=== PATIENT | male | born 1995 | race African-American/Black ===

== ENCOUNTER 2021-07-15 17:37 | Emergency (ER) | payer OTHER, MEDICAID, SELFPAY ==
[2021-07-15 17:44] VITALS: BP 127/87; PULSE 85; RESP 18; TEMP 36.5; O2SAT 97
[2021-07-15 18:27] LABS: COVID19 -Nasal RAPID Negative (Negative)
== END 2021-07-15 20:37 | disposition left against medical advice (07) ==
PROVIDERS: Emergency Medicine; Emergency Provider Emergency Medicine
DX: R05.9 Cough, unspecified (principal); J02.9 Acute pharyngitis, unspecified; R50.9 Fever, unspecified; Z20.822 Contact with and (suspected) exposure to COVID-19
CPT/HCPCS: 87635; 87880; 99282; C9803

== ENCOUNTER 2021-08-03 09:11 | Emergency (ER) | payer OTHER, MEDICAID, SELFPAY ==
[2021-08-03 09:24] VITALS: BP 166/103; PULSE 98; RESP 18; TEMP 37.1; O2SAT 99; BMI 32.8
--- NOTE | 2021-08-03 09:49 | ED.PSYCH ---
HPI - Psych General Chief Complaint: Psychiatric Symptoms Stated Complaint: Mental health crisis Time Seen by Provider: 08/03/21 09:12 Source: patient and family Mode of arrival: Family Vehicle History of Present Illness HPI Narrative: 25-year-old male nonsmoke with a history of depression presents with his girlfriend for evaluation of suicidal thoughts. Denies any obvious triggers or significantly stressful events that may be contributing. He felt a bit anxious on Thursday night and went to the gym this typically will help him, he went to bed feeling great and woke up and noted that he was holding a knife firmly to his left wrist. He had been having some thoughts of wanting to hurt himself but is currently not having any suicidal ideation or homicidal ideation. He is able to care for himself at home. He has a 2-month-old baby at home and though sleep has been slightly hard to come by he is otherwise well. He does not have any access to therapist or psychiatrist as an outpatient. He has never taken any medications for his depression. He denies alcohol or street drugs Related Data Previous Rx's Medication Instructions Recorded alprazolam 0.25 mg tablet (Xanax) 0.25 mg PO TID PRN #10 tab 08/03/21 Allergies Allergy/AdvReac Type Severity Reaction Status Date / Time No Known Drug Allergies Allergy Verified 08/03/21 09:23 Review of Systems Review of Systems Narrative: GENERAL: Denies chills, fatigue, malaise, fever, sweats. HEENT: Denies sinus pain, ear pain, sore throat, difficulty swallowing, dizziness. RESPIRATORY: Denies dyspnea, cough, wheezing, hemoptysis, sputum. CARDIOVASCULAR: Denies chest pain, palpitations, orthopnea, edema, GASTROINTESTINAL: Denies nausea, vomiting, abdominal pain, diarrhea, constipation, melena. : Denies dysuria, frequency, incontinence, hematuria, urinary retention. MUSCULOSKELETAL: denies weakness, joint pain, or bony pain SKIN: Denies rash, skin lesions, or other NEUROLOGIC: Denies weakness, headache, numbness, change in speech, confusion, seizures, incoordination. PSYCHIATRIC: See HPI 12 point review of systems is negative except for those stated above Patient History Social History Smoking Status: Current every day smoker Smoking Status: Current every day smoker alcohol intake frequency: holidays/special occasions only Substance Use Type: marijuana Exam Narrative Exam Narrative: GENERAL: [25 year old patient appears stated age. Well-developed patient, in mild distress. HEAD: Atraumatic. Normocephalic. EYES: Pupils equal round and reactive. Extraocular motions intact. No scleral icterus. No injection or drainage. ENT: Nose without bleeding, purulent drainage. Throat without erythema, tonsillar hypertrophy or exudate. Airway patent. NECK: Trachea midline. Non tender CARDIOVASCULAR: Regular rate and rhythm without murmurs, gallops, or rubs. RESPIRATORY: Clear to auscultation. Breath sounds equal bilaterally. No wheezes, rales, or rhonchi. GASTROINTESTINAL: Abdomen soft, non-tender, nondistended. EXTREMITIES: No edema or joint tenderness. BACK: Nontender without deformity or crepitance. No flank tenderness. NEURO: AOx3. SKIN: No rash or erythema of visible areas Initial Vital Signs Initial Vital Signs: Vital Signs Temperature 98.7 F 08/03/21 09:24 Pulse Rate 98 H 08/03/21 09:24 Respiratory Rate 18 08/03/21 09:24 Blood Pressure 166/103 H 08/03/21 09:24 Pulse Oximetry 99 08/03/21 09:24 Course Orders Ordered: Discontinued Medications Lorazepam (Lorazepam 0.5 Mg Tablet) 0.5 mg PO NOW ONE Stop: 08/03/21 11:11 Last Admin: 08/03/21 12:05 Dose: 0.5 mg Documented by: MELINDA Vital Signs Vital signs: Vital Signs - 8 hr 08/03/21 11:43 Temperature 97.8 F Pulse Rate 56 L Respiratory Rate 16 Blood Pressure 157/95 H Pulse Oximetry 100 [facility] - Psych Lab Data Result diagrams: 08/03/21 10:38 08/03/21 10:38 Labs: Lab Results 08/03/21 08/03/21 08/03/21 Range/Units 09:44 10:38 10:38 WBC 9.7 (4.5-11.0) X10^3/uL RBC 6.07 H (4.5-5.9) X10^6/uL Hgb 13.9 (13.5-17.5) g/dL Hct 41.6 (41-53) % MCV 68.5 L (80-100) fL MCH 23.0 L (26-34) PG MCHC 33.5 (30-36) % RDW 16.3 H (11.6-14.8) % Plt Count 267 (150-400) X10^3/uL Neut % (Auto) 67.1 (50-75) % Lymph % (Auto) 22.0 L (25-40) % [place] % (Auto) 9.9 (3-14) % Eos % (Auto) 0.7 L (2-4) % Baso % (Auto) 0.3 (0-2) % Neut # (Auto) 6500 (0188-6904) /uL Lymph # (Auto) 2100 (5952-7306) /uL [place] # (Auto) 1000 H (0-900) /uL Eos # (Auto) 100 (0-450) /uL Baso # (Auto) 0 (0-100) /uL RBC Morphology See below Hypochromasia 2+ H Anisocytosis 2+ H Target Cells 1+ H Sodium 140 (137-145) mmol/L Potassium 4.1 (3.4-5.1) mmol/L Chloride 101 (98-107) mmol/L Carbon Dioxide 28 (22-32) mmol/L BUN 9 (9-20) mg/dL Creatinine 1.12 (0.66-1.25) mg/dL Estimated GFR > 60.0 (>60) mL/min BUN/Creatinine Ratio 8.0 (6-22) Glucose 92 (70-100) mg/dL Calcium 9.8 (8.4-10.2) mg/dL Total Bilirubin 1.0 (0.2-1.3) mg/dL AST 44 (17-59) IU/L ALT 36 (<50) IU/L Alkaline Phosphatase 77 (38-126) U/L Total Protein 9.3 H (6.3-8.2) g/dL Albumin 4.9 (3.5-5.0) g/dL Globulin 4.4 H (1.7-4.1) g/dL Albumin/Globulin Ratio 1.1 (1.0-2.8) U Opiates 300ng/mL cut Negative (Negative) Ur Oxycodone Screen Negative (Negative) Urine Methadone Screen Negative (Negative) Ur Barbiturates Screen Negative (Negative) U Tricyclic Antidepress Negative (Negative) Ur Phencyclidine Scrn Negative (Negative) Ur Amphetamines Screen Negative (Negative) U Methamphetamines Scrn Negative (Negative) Ur MDMA Scrn (Ecstasy) Negative (Negative) U Benzodiazepines Scrn Negative (Negative) Urine Cocaine Screen Negative (Negative) U Marijuana (THC) Screen Positive H (Negative) Ethyl Alcohol < 10 ( - 10) mg/dL MDM Narrative Medical decision making narrative: Patient with no active suicidal ideation or homicidal ideation. He can perform his ADLs without difficulty. No indication for hospitalization. He has seen and been evaluated by [facility] and plan is to connect him with outpatient primary care and therapy. Discharge Plan Departure Patient Disposition: Home Clinical Impression: Depression, Acute anxiety Instructions: Depression, DI for Anxiety -- Adult Activity Restrictions/Additional Instructions: *You have been diagnosed with [anxiety and depression.] *What to do: *Please continue to take your regular medications as directed. [ ] New medication prescriptions sent to your pharmacy: [ ] [x ] New medication written as a paper prescription [ ] No new medications given *Please follow up with your primary care provider in 2-3 days, call for an appointment. Let them know you were seen in the Emergency Department and that we ask that you be seen in follow up. We will electronically transmit a record of today's note if your PCP is in our system *If you do not have a primary care provider please contact the [facility] Resource line at [phone]. They will ask some questions about your medical history and help get you set up with a doctor in the community. *If you feel that you are entering into mental health crisis you have multiple options 1. Return to the ER immediately 2. Call the Crisis Line at [phone] 3. Send an anonymous text by sending the word Frankie to [phone] 4. Navigate your web browser to [employer] to engage in anonymous chat with a mental health worker Prescriptions: New alprazolam [Xanax] 0.25 mg tablet 0.25 mg PO TID PRN (Reason: anxiety) Qty: 10 RF: 0
[2021-08-03 09:54] LABS: Ur Creatinine Normal (Normal); Ur Specific Gravity Normal (Normal); Urine pH Normal (Normal)
[2021-08-03 09:55] LABS: UR Morphine/Opiate cutoff 300 Negative (Negative); Urine Amphetamines Negative (Negative); Urine Barbiturates Negative (Negative); Urine Benzodiazepines Negative (Negative); Urine Cocaine Negative (Negative); Urine MDMA Negative (Negative); Urine Methadone Negative (Negative); Urine Methamphetamines Negative (Negative); Urine Oxycodone Negative (Negative); Urine Phencyclidine Negative (Negative); Urine Tetrahydrocannabinol Positive (Negative); Urine Tricyclic Antidepressant Negative (Negative)
[2021-08-03 10:53] LABS: Add Manual Diff / Slide Review NO; Basophils Absolute Auto 0 /uL (0-100); Basophils Percent Auto 0.3 % (0-2); Eosinophils Absolute Auto 100 /uL (0-450); Eosinophils Percent Auto 0.7 % (2-4); Hematocrit 41.6 % (41-53); Hemoglobin 13.9 g/dL (13.5-17.5); Lymphocytes Absolute Auto 2100 /uL (1100-4500); Mean Corpuscular HGB Conc 33.5 % (30-36); Mean Corpuscular Volume 68.5 fL (80-100); Monocytes Absolute Auto 1000 /uL (0-900); Monocytes Percent Auto 9.9 % (3-14); Neutrophils Absolute Auto 6500 /uL (1500-7000); Neutrophils Percent Auto 67.1 % (50-75); Platelet Count 267 X10^3/uL (150-400); Red Blood Cell Count 6.07 X10^6/uL (4.5-5.9); Red Cell Distribution Width 16.3 % (11.6-14.8); White Blood Cell Count 9.7 X10^3/uL (4.5-11.0)
[2021-08-03 11:04] LABS: Alanine Aminotransferase 36 IU/L (<50); Albumin 4.9 g/dL (3.5-5.0); Albumin Globulin Ratio 1.1 (1.0-2.8); Alkaline Phosphatase 77 U/L (38-126); Aspartate Aminotransferase 44 IU/L (17-59); Blood Urea Nitrogen 9 mg/dL (9-20); Calcium 9.8 mg/dL (8.4-10.2); Carbon Dioxide 28 mmol/L (22-32); Chloride 101 mmol/L (98-107); Estimated Glomerular Filt Rate > 60.0 mL/min (>60); Ethanol (ETOH) < 10 mg/dL; Globulin 4.4 g/dL (1.7-4.1); Glucose 92 mg/dL (70-100); HEMOLYSIS < 15 (0-50); Potassium 4.1 mmol/L (3.4-5.1); Sodium 140 mmol/L (137-145); Total Protein 9.3 g/dL (6.3-8.2)
[2021-08-03 11:43] VITALS: BP 157/95; PULSE 56; RESP 16; TEMP 36.6; O2SAT 100
[2021-08-03] MEDS: LORazepam 0.5 MG TABLET PO (12:05)
[2021-08-03 12:23] LABS: Anisocytosis 2+; Target Cells 1+
[2021-08-03 12:24] LABS: Hypochromasia 2+
--- NOTE | 2021-08-03 13:15 | CM.SWNOTE ---
Patient is a 25 yo male who was admitted on 08/03/21 for Mental Health Crisis. Pt has [facility] and [facility] for insurance and he has no PCP. EMR was reviewed. Per ED MD, BRICK YARD HAND Consult placed due to pt's ongoing depression/anxiety/remote suicidal ideation. BRICK YARD HAND completed assessment, see below: Discharge Planning/Care Management ED Psychiatric Symptoms Assessment Start: 08/03/21 09:23 Freq: Status: Discharge Protocol: Document 08/03/21 09:40 RLS (Rec: 08/03/21 12:48 RLS [id number]) Psychiatric Symptoms Assessment Symptoms/Complaint Feels Depressed Onset varies over time Duration Changing Over Time History Of Same Yes Context Not Taking Psychiatric Medications Worsens With Nothing Associated Psychiatric Symptoms Depression Details of Plan si 3 days ago. denies any now. see my triage note. social work called. Md aware Level of Consciousness Alert,Appropriate Patient Orientation Name,Age,Birthday,Month,Date, Year,Day of Week,Place, Situation Patient Behavior/Mood Cooperative Ability to Follow Directions Excellent Patient Cognition Impaired No Affect Description Depressed Patient Appearance Well Groomed Hallucination Type None Delusion Description Not Present Thought Process: Normal Major Depressive Episode No Feelings of Hopelessness No Suicidal Ideation None Suicide Plan No Plan Homicidal Ideation None Nausea/Vomiting None BRICK YARD HAND - Choir Singer Assessment Start: 08/03/21 12:57 Freq: Status: Active Protocol: Document 08/03/21 12:57 BF (Rec: 08/03/21 13:15 BF [email or web address]) BRICK YARD HAND/Choir Singer Assessment Start date 08/03/21 Visit Start Time 10:30 End date 08/03/21 Visit End Time 11:15 Total time Care Management spent on 60 min patient visit-in minutes Presenting Problem Pt presents to ED with remote suicidal ideation/anxiety/ safety concerns Precipitating Event(s) Unknown, although pt has 2 mo son with Sig Other Mikhaela and lack of sleep and underlying depression. Patient Strengths supportive sig other, interested in seeking help, works at baseline Current Behavioral Health Provider(s) none Include Facility, Provider, Ph. # Psych. Hx Mental Health and Chemical denies Dependency Family Hx of Behavioral Abuse unknown Psychiatric Hospitalizations (date(s)/ denies location) Psychosocial information & Support Lives in [place] with [employer] Other and their 2 mo old son and Sig Other's sister lives with them as well. Pt has supportive involved mother. School/Work Pt works at [employer] at baseline. Legal Matters - Outstanding Issues denies Orientation (Person/Place/Time) A&O x4 Stated Mood fatigued, depressed, anxious Affect (Congruent with Mood?) Congruent. Pt has flat affect and appears low energy, slumped over. Thought Content - Specify/Describe Pt states he tends to cycle Obsessions, Delusions, Hallucinations with a week of feeling very depressed with low energy and just wants to sleep all day and then he begins to improve and is able to push his depression away and begin working out again and making healthier choices. Thought Processes (Zsubjvi-Fwptbagu-Kcca Logical Fepsgouo-Uegwxjnu-Orxwahpkbd- Wuxwerlscbdhuk-Ttfoqig-Ygdxmzzfgavq- Thought Blocking) Speech (Vcwcyf-Trji-Dokyifx-Rapid-Soft- Normal, soft, slow Loud-Pressured) Motor (Xfjazg-Wkmfgttso-Coxs-Other) Slow, fatigued Insight (Muhx-Ngdv-Gjao/Limited) Fair. Pt sometimes feels that he is managing his mental health needs well but gets feedback from his family that he does not appear to be doing well at all, not handling his depression well. Judgement (Zxqp-Jdgp-Gnnw/Limited) Fair Impulse Control (Adequate-Impaired) Impaired as evidenced by pt waking up with a knife in my hand. Memory (Sxkyccvbr-Msrnxa-Gyrijn, Immediate Impaired-Intact) Concentration (Intact-Impaired) Impaired. Pt states he is too tired to think clearly and appears to be drowsy and overwhelmed with resource information Attention (Intact-Impaired) Impaired by fatigue Behavior (Appropriate-Inappropriate) Appropriate Suicidal Ideation (Plan) No: hx of S.I. but denies currently Homicidal Ideation (Plan) No Intervention BRICK YARD HAND met bedside with pt in ED with Sig Other/mother of their son and explained role and pt was able to participate in discussion but showed signs of fatigue, increased anxiety during discussion, and signs of being overwhelmed. Pt was able to confirm that he moved from [place] about a year ago and attempted to join the [employer] but has a dx of PDD (persistent Depressive DO) and this ruled him out from joining the [employer]. Pt lives with his Sig Other and they have a 2 mo son and pt states he is lacking sleep but does not feel the of their son has been a trigger for him. Sig Other notes pt's depression and now anxiety have increased over the past few months with no concern of harm to herself or baby but concerns with pt's ability to manage his mental health without medication assist and counseling. Pt is not established with PCP and Sig Other plans to call on Thu to set up an Establish Care apt with [facility]. Sig Other appears very supportive, engaged, and able to assist pt with following through with calling to establish care. Pt confirms he has struggled with depression for many years but was just recenty dx with PDD from the [employer] a year ago but has not been prescribed any medication to assist but pt is open to the idea of medication management. Pt also denies any hx of counseling but states he would be willing to try. SW provided Mental Health resources for [facility] and encouraged them to also call customer service on insurance card for further possible options of individual therapists. SW discussed PCP or Psychiatrist for med management of pt's mental health symptoms. DARIO also discussed Crisis Stabilization at [facility] [place] if pt's symptoms increase and how Inpt MH tx works as well. Both feel that they can maintain safety with d/c to home with resources provided as well as establishing with PCP on Thursday. Pt began to have some increasing anxiety and Sig Other did well with providing comfort and understanding and SW provided warm blankets and juice/food as pt just had blood draw and no food. RA Plan BRICK YARD HAND updated MD and RN and both agreeable with d/c of home with resources and ED MD willing to provide some anxiety medication to assist while pt is working to get established with PCP on Thursday . Pt and Sig Other were able to plan for safe community d/c with resources, Sig Other sister support, and pt's mother's support.
== END 2021-08-03 11:43 | disposition home or self-care (01) ==
PROVIDERS: Emergency Provider Emergency Medicine
DX: F32.A Depression, unspecified (principal); F41.9 Anxiety disorder, unspecified
CPT/HCPCS: 80053; 80305; 80320; 85025; 99283